=== PATIENT | male | born 1965 | race Caucasian/White ===

== ENCOUNTER 2020-01-09 17:12 | Emergency (ER) | payer OTHER ==
[~2020-01-09] VITALS: Ht 182.9 cm; Wt 108.9 kg
[~2020-01-09 17:12] MED LIST: ASPIRIN EC325 MG PO; LISINOPRIL2.5 MG PO; METFORMIN HCL500 MG PO
[2020-01-09] MEDS ORDERED: MACROBID 100 M100 MG PO (20:23)
== END 2020-01-09 20:59 | disposition home or self-care (01) ==
LOC: ED 17:12
DX: N17.9 Acute kidney failure, unspecified (principal); R31.0 Gross hematuria; E11.9 Type 2 diabetes mellitus without complications; Z88.5 Allergy status to narcotic agent
CPT/HCPCS: 51702; 51798; 80048; 81001; 85025; 99283-25; J7030

== ENCOUNTER 2020-01-13 05:31 | Emergency (ER) | payer OTHER ==
[~2020-01-13] VITALS: Ht 182.9 cm; Wt 108.9 kg
[~2020-01-13 05:31] MED LIST changes: +MACROBID 100 M100 MG PO
--- OUTSIDE RECORDS SUMMARY | 2020-01-13 05:34 | XMS ---
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 Fer has no Care Guidelines for this patient. [facility] MO[facility] NOTE: Visits indicate total known visits. ED/C VISIT TRACKING (12 MO.) 01/13/2020 05:[address] [facility] [place] TYPE: Emergency COMPLAINT: - URINE PROBLEM 01/09/2020 17:13 [facility] [place] TYPE: Emergency COMPLAINT: - BLOOD IN URINE DIAGNOSES: - Allergy status to narcotic agent - Acute kidney failure, unspecified - Gross hematuria - Hematuria, unspecified - Type 2 diabetes mellitus without complications INPATIENT VISIT TRACKING (12 MO.) No inpatient visits to display in this time frame [email or web address]
== END 2020-01-13 06:55 | disposition home or self-care (01) ==
LOC: ED 05:31
DX: T83.098A Other mechanical complication of other urinary catheter, initial encounter (principal); R31.9 Hematuria, unspecified; E11.9 Type 2 diabetes mellitus without complications; Z88.5 Allergy status to narcotic agent; Z79.899 Other long term (current) drug therapy
CPT/HCPCS: 51798; 99283-25

== ENCOUNTER 2020-01-28 12:07 | Observation (INO) | payer OTHER ==
[~2020-01-28] VITALS: Ht 182.9 cm; Wt 93.3 kg
--- NOTE | 2020-01-28 14:30 | NUR ---
PT ARRIVED FOR DIRRECT ADMIT FROM DR MENDOZA OFFICE. CBI ALREADY IN PLACE. PT IS ALERT AND ORIENTED. VITALS TAKEN. PT SENT DOWN FOR 2 VIEW CHEST XRAY. IV STARTED AND LABS DRAWN. LR STARTED. ABX GIVEN. PT DENEIS PAIN.
--- NOTE | 2020-01-28 15:00 | NUR ---
1355- SWABBED BOTH NARES FOR RAPID COVID TEST WITH NO COMPLICATIONS. SAMPLE TAKEN TO [facility]. PERFORMED BY TALIB RT
--- NOTE | 2020-01-28 16:00 | NUR ---
FOELY EMPTIED FOR 2350 MLS. 2000 IRRIGATED. U/O- 350.
--- NOTE | 2020-01-28 17:38 | NUR ---
REPORT CALLED TO EMMY WARNER @ [phone].
== END 2020-01-28 16:35 | disposition short-term general hospital (02) ==
LOC: MS 12:07
PROVIDERS: ADMIT Urology; ATTEND Urology
DX: R31.0 Gross hematuria (principal); E11.9 Type 2 diabetes mellitus without complications; I10 Essential (primary) hypertension; N28.89 Other specified disorders of kidney and ureter; Z79.84 Long term (current) use of oral hypoglycemic drugs; Z79.82 Long term (current) use of aspirin; Z79.899 Other long term (current) drug therapy
CPT/HCPCS: 71046; 80053; 85025; G0378; J0696; J7121; U0003

== ENCOUNTER 2020-02-19 14:38 | Emergency (ER) | payer OTHER ==
[~2020-02-19] VITALS: Ht 182.9 cm; Wt 93.0 kg
[2020-02-19] MEDS ORDERED: METFORMIN HCL500 MG PO (15:21)
== END 2020-02-19 23:32 | disposition short-term general hospital (02) ==
LOC: ED 14:38
DX: I82.492 Acute embolism and thrombosis of other specified deep vein of left lower extremity (principal); C64.9 Malignant neoplasm of unspecified kidney, except renal pelvis; Z90.5 Acquired absence of kidney; E11.9 Type 2 diabetes mellitus without complications; Z88.5 Allergy status to narcotic agent; Z79.84 Long term (current) use of oral hypoglycemic drugs; Z20.828 Contact with and (suspected) exposure to other viral communicable diseases
CPT/HCPCS: 36415; 80053; 82550; 85025; 85610; 85730; 93971; 96365; 96366; 96376; 99284-25; A9270; C9803; J1644; U0003

== ENCOUNTER 2021-02-17 13:32 | Emergency (ER) | payer OTHER ==
[~2021-02-17] VITALS: Ht 182.9 cm; Wt 114.7 kg
[2021-02-17] MEDS ORDERED: ELIQUIS5 MG PO (13:47)
[2021-02-17] MEDS ORDERED: AMLODIPINE BESY10 MG PO (13:47)
[2021-02-17] MEDS ORDERED: PIOGLITAZONE HC30 MG PO (13:48)
== END 2021-02-17 15:38 | disposition home or self-care (01) ==
LOC: ED 13:32
DX: R04.0 Epistaxis (principal); Z79.01 Long term (current) use of anticoagulants; E11.22 Type 2 diabetes mellitus with diabetic chronic kidney disease; N18.9 Chronic kidney disease, unspecified; Z88.5 Allergy status to narcotic agent; Z79.899 Other long term (current) drug therapy; Z79.84 Long term (current) use of oral hypoglycemic drugs
CPT/HCPCS: 99283

== ENCOUNTER 2024-03-11 13:08 | Emergency (ER) | payer MEDICARE, OTHER ==
[~2024-03-11] VITALS: Ht 182.9 cm; Wt 124.7 kg
[~2024-03-11 13:08] MED LIST changes: +AMLODIPINE BESY10 MG PO; +ELIQUIS5 MG PO; +PIOGLITAZONE HC30 MG PO
[2024-03-11] MEDS ORDERED: HYDROCORTISONE10 MG PO (13:15)
[2024-03-11] MEDS ORDERED: LEVOTHYROXINE137 MCG PO (13:15)
[2024-03-11] MEDS ORDERED: TRANEXAMIC ACID 1,000 MG/10 ML AMP TOP ONE (13:15)
[2024-03-11] MEDS ORDERED: OXYMETAZOLINE HCL 30 ML BTL NAS ONE (13:15)
[2024-03-11] MEDS ORDERED: AMLODIPINE BESYLATE 10 MG TAB PO ONE (13:30)
[2024-03-11 14:05] LABS: EOSINOPHILS 5.4 % (0-6); HEMOGLOBIN 12.5 g/dL (12.0-18.0); LYMPHOCYTES 19.4 % (24-44); MCH 33.2 (27-36); MCHC 33.8 g/dl (30-36); MCV 98.4 fl (81-99); MONOCYTES 5.6 % (0-12); NEUTROPHILS 68.6 % (39-80); PLATELET COUNT 153 K/uL (140-440); RBC 3.76 M/ul (4.3-5.7)
[2024-03-11 14:14] LABS: ALBUMIN 2.9 g/dL (3.4-5.0); ANION GAP 12.8 (7-21); BILIRUBIN, TOTAL 0.3 ng/dL (0.2-1.0); BUN/CREATININE RATIO 15.05 (6.0-28.6); CALCIUM 8.2 mg/dL (8.5-10.1); CREATININE, SERUM 1.86 mg/dL (0.70-1.30); POTASSIUM 3.8 mmol/L (3.5-5.1); PROTEIN, TOTAL 5.8 g/dL (6.4-8.2)
[2024-03-11 14:41] LABS: ABO O; ANTIBODY SCREEN NEGATIVE; RH POSITIVE
[2024-03-11 15:00] VITALS: BP 145/98
[2024-03-11] MEDS ORDERED: HEParin SOD (PORCINE) 500 UNIT/5 ML ML IV ONE (15:00)
== END 2024-03-11 15:00 | disposition home or self-care (01) ==
LOC: ED 13:08
PROVIDERS: Emergency Medicine
DX: R04.0 Epistaxis (principal); E11.22 Type 2 diabetes mellitus with diabetic chronic kidney disease; N18.9 Chronic kidney disease, unspecified; Z85.528 Personal history of other malignant neoplasm of kidney; Z88.5 Allergy status to narcotic agent; Z79.01 Long term (current) use of anticoagulants; Z79.890 Hormone replacement therapy; Z79.84 Long term (current) use of oral hypoglycemic drugs; Z79.899 Other long term (current) drug therapy
CPT/HCPCS: 30903; 36415; 80053; 85025; 86850; 86900; 86901; 99283-25

== ENCOUNTER 2025-02-11 15:16 | Inpatient (IN) | payer MEDICARE ==
[~2025-02-11] VITALS: Ht 182.9 cm; Wt 129.4 kg
[~2025-02-11 15:16] MED LIST changes: +HYDROCORTISONE10 MG PO; +LEVOTHYROXINE137 MCG PO
[2025-02-11] MEDS ORDERED: CALCIUM-MAG-ZI1 EACH PO (15:46)
[2025-02-11] MEDS ORDERED: LASIX20 MG PO (15:47)
[2025-02-11] MEDS ORDERED: JARDIANCE25 MG PO (15:47)
[2025-02-11] MEDS ORDERED: ALBUTEROL/IPRATROPIUM 3 ML NEB INH PRN (16:00)
[2025-02-11 16:05] LABS: BASOPHILS 0.5 % (0.2-1.2); EOSINOPHILS 4.6 % (0.8-7.0); LYMPHOCYTES 17.5 % (21.8-53.1); MCH 29.2 PG (25.7-32.2); MCHC 31.4 g/dL (32.3-36.5); MCV 93.0 fL (79.0-92.2); MONOCYTES 12.0 % (5.3-12.2); NEUTROPHILS 64.7 % (34.0-67.9); RBC 4.89 M/uL (4.63-6.08)
[2025-02-11 16:32] LABS: AST (SGOT) 12.0 U/L (15-37); GLOMERULAR FILTRATION RATE,EST 26.0 mL/min (>60); PROTEIN, TOTAL 7.0 g/dL (6.4-8.2); UREA NITROGEN 44.0 mg/dL (7-18)
[2025-02-11 16:43] LABS: ALT (SGPT) 18.0 U/L (14-59)
[2025-02-11] MEDS ORDERED: SODIUM CHLORIDE 0.9% 1,000 ML IV PRN ×2 (16:45→19:00)
[2025-02-11 17:17] LABS: INFLUENZA B NAA NEGATIVE (NEGATIVE); RESPIRATORY SYNCYTIAL VIR NAA NEGATIVE (NEGATIVE)
[2025-02-11] MEDS ORDERED: LIDOCAINE 2% VISCOUS 6 ML SYR TOP ONE (19:00)
[2025-02-11 20:50] VITALS: BP 139/83
--- NOTE | 2025-02-11 20:58 | NUR ---
RECEIVED REPORT FROM ER, RN. PT AMBULATED FROM STRETCHER TO MED SURG BED. WT AND VS TAKEN, ORDERED FLUIDS HUNG. NO OTHER NEEDS AT THIS TIME, CALL LIGHT WITHIN REACH, BED AT LOWEST POSITION.
--- NOTE | 2025-02-11 21:08 | NUR ---
PATIENT BROUGHT TO THE FLOOR, THIS HELPING HANDS NURSE GOT VITALS. PATIENT ON RA, AND SECOND FLUID BOLUS IS RUNNING. PATIENT HAS BELONGINGS AT BEDSIDE AND IN GREEN BAG. PATIENT HAS CANE AND BRACE FOR HIS RIGHT FOOT. PATIENT HAS PAIN IN HIS CHEST. PATIENT STATES HE IS DIABETIC BUT DOES NOT CHECK HIS SUGARS AT HIME. PATIENT HAS PORT ACCESS FOR IV.
[2025-02-11] MEDS ORDERED: LACTATED RINGER'S 1,000 ML IV SCH (21:15)
--- NOTE | 2025-02-11 21:45 | NUR ---
PTS ASSESSMENT COMPLETE. PT REQUESTING WATER, EDUCATED ON NPO D/T IMAGING. PT UNDERSTANDS, NO OTHER NEEDS AT THIS TIME, CALL LIGHT WITHIN REACH.
[2025-02-11 21:57] VITALS: BP 139/83
--- NOTE | 2025-02-11 22:40 | NUR ---
PT REPORTS HE HAS VOMITED, THFAZAL RN AND COLOR BUFFER AT BEDSIDE. 300ML DARM BROWN EMESIS EMPTIED IN TOILET, NEW EMESIS BAG GIVEN. THSI RN CALLED MD TO REPORT EMESIS, NEW TELEPHONE ORDERS RECIEVED. MD ALSO STATES FOR THIS RN TO ADD HYPOGLYCEMIC PROTOCOL AND Q6BS CHECKS ON PT. PT GIVEN PRN COMPAZINE, NO OTHER NEEDS REPORTED, CALL LIGHT WITHIN REACH.
[2025-02-11] MEDS ORDERED: DEXTROSE 50% 50 ML SYR IV PRN ×2 (22:45)
[2025-02-11] MEDS ORDERED: PROCHLORPERAZINE EDISYLATE 10 MG/2 ML VIAL IV PRN (22:45)
[2025-02-11] MEDS ORDERED: IBLOOD GLUCOSE TEST STRIP 1 EA TEST XX PRN (22:45)
[2025-02-11] MEDS ORDERED: DEXTROSE 5% 1,000 ML IV PRN (22:45)
[2025-02-11] MEDS ORDERED: GLUCAGON,HUMAN RECOMBINANT 1 MG/ML VIAL SUB-Q PRN (22:45)
[2025-02-12] VITALS (14 sets, daily range): BP systolic 113–150; BP diastolic 66–92
--- NOTE | 2025-02-12 00:23 | NUR ---
PT LAYING IN BED, EYES CLOSED, UNLABORED BREATHING. CALL LIGHT WITHIN REACH.
--- NOTE | 2025-02-12 01:45 | NUR ---
PTS VS TAKEN, BG CHECKED, TEIXEIRA EMPTIED. NO NEEDS REPORTED AT THIS TIME, CALL LIGHT WITHIN REACH.
[2025-02-12] MEDS ORDERED: IBLOOD GLUCOSE TEST STRIP 1 EA TEST VI SCH ×2 (02:00→12:00)
--- NOTE | 2025-02-12 03:55 | NUR ---
PTS IV PUMP ALARMING, NEW BAG OF FLUIDS RUNNING. NO OTHER NEEDS AT THIS TIME, CALL LIGHT WITHIN REACH.
--- NOTE | 2025-02-12 05:29 | NUR ---
VITALS TAKEN, LLUVIA MONTALVO, I&OS CHARTED, PT REPORTS NO NEEDS AT THIS TIME, CALL LIGHT WITHIN REACH.
--- NOTE | 2025-02-12 07:08 | NUR ---
Pt report received from TIMMY Zhao. Pt is resting supine in bed, A&O, denies pain at this time. Assessment done at this time. Call light in reach. White board updated.
[2025-02-12 08:01] LABS: BASOPHILS 0.5 % (0.2-1.2); EOSINOPHILS 3.6 % (0.8-7.0); LYMPHOCYTES 16.1 % (21.8-53.1); MCH 29.4 PG (25.7-32.2); MCHC 30.9 g/dL (32.3-36.5); MCV 95.2 fL (79.0-92.2); MONOCYTES 13.0 % (5.3-12.2); NEUTROPHILS 66.3 % (34.0-67.9); RBC 4.39 M/uL (4.63-6.08)
[2025-02-12 08:25] LABS: ALT (SGPT) 16.0 U/L (14-59); AST (SGOT) 13.0 U/L (15-37); GLOMERULAR FILTRATION RATE,EST 31.0 mL/min (>60); PHOSPHORUS, INORGANIC 4.1 mg/dL (2.5-4.9); PROTEIN, TOTAL 6.0 g/dL (6.4-8.2); UREA NITROGEN 37.0 mg/dL (7-18)
--- NOTE | 2025-02-12 10:21 | NUR ---
ALERT AND ORIENTED IN BED. PATIENT LIVES IN APARTMENT WITH "A FEW STEPS TO GET INSIDE." STATES THERE IS A HANDRAIL THAT HE USES. HE HAS A CANE. DOES NOT DRIVE, BROTHER DROVE HIM TO THE HOSPITAL YESTERDAY. HAS NO FINANCIAL CONCERNS. STATES HE IS ABLE TO PAY FOR UTILITIES, FOOD AND MEDICATIONS WITHOUT DIFFICULTY. PLANS TO RETURN HOME WHEN MEDICALLY READY. NO CM NEEDS AT THIS TIME.
[2025-02-12] MEDS ORDERED: ACETAMINOPHEN 325 MG TAB PO PRN (11:15)
[2025-02-12] MEDS ORDERED: IBLOOD GLUCOSE TEST STRIP 1 EA TEST XX PRN (11:15)
[2025-02-12] MEDS ORDERED: DEXTROSE 50% 50 ML SYR IV PRN ×2 (11:15)
[2025-02-12] MEDS ORDERED: DEXTROSE 5% 1,000 ML IV PRN (11:15)
[2025-02-12] MEDS ORDERED: PROCHLORPERAZINE EDISYLATE 10 MG/2 ML VIAL IV PRN (11:15)
[2025-02-12] MEDS ORDERED: LACTATED RINGER'S 1,000 ML IV SCH (11:15)
[2025-02-12] MEDS ORDERED: GLUCAGON,HUMAN RECOMBINANT 1 MG/ML VIAL SUB-Q PRN (11:15)
[2025-02-12] MEDS ORDERED: PANTOPRAZOLE SODIUM 40 MG/10 ML VIAL IV SCH (11:20)
--- NOTE | 2025-02-12 11:30 | NUR ---
CHG wipe down completed at this time by RENA Andrade. Alston emptied of 150ml clear yellow urine, pre-op
[2025-02-12] MEDS ORDERED: LIDOCAINE HCL 2% 5 ML SDV ONE (11:44)
--- NOTE | 2025-02-12 11:56 | NUR ---
Pt transferred to Day surgery by two OR RNs. LR on straight tubing hung and connected to pt. Pt cell phone locked in lock box in pt room at pt's request.
[2025-02-12] MEDS ORDERED: INSULIN LISPRO 100 UNIT/ML ML SUB-Q SCH (12:00)
[2025-02-12] MEDS ORDERED: PHARMACY RENAL DOSE ADJUSTMENT 1 DOSE MISC PO SCH (12:00)
--- NOTE | 2025-02-12 12:28 | NUR ---
02/12/25 1228 Grace Andre 1223: PT ARRIVES TO PACU DROWSY/AWAKE AND REACTIVE. PT CONNECTED TO MONITORS. REPORT RECEIVED FROM ADOLESCENT PSYCHIATRIST AND NETWORK PLANNER. CHASE 1225: PT DENIES HAVING ANY PAIN OR NAUSEA.
--- NOTE | 2025-02-12 12:32 | NUR ---
DAILY CHG WIPEDOWN COMPLETE. BED LINENS AND GOWN CHANGED, ROOM TIDIED BY THIS STAMPING MILL TENDER.
--- NOTE | 2025-02-12 12:49 | NUR ---
Pt arrived back to room, transferred via jake Mcnulty from PACU. Pt is A&O. Denies pain at this time. Received pt report from TIMMY Mcnulty. IVF running at ordered rate per emar. SCDs connected. Pt's phone retrieved from lock box and given to pt. Side rails up x4, jean catheter draining clear yellow urine. VSS, CPOX on.Call light in reach.
--- NOTE | 2025-02-12 14:50 | NUR ---
Pt is A&O, brother is in visiting with him. Pt VSS. Denies pain at this time, has been sipping room temp water. It has been 2 hours post procedure. Pt provided with iced water. Call light in reach.
[2025-02-12] MEDS ORDERED: SUCRALFATE 1 GM TAB PO SCH (16:00)
--- NOTE | 2025-02-12 16:04 | NUR ---
HOURLY ROUNDING POST OPP VITALS FOR PATIENT. NO REQUEST AT THIS TIME CALL LIGHT HAS BEEN PLACED WITHIN REACH
--- NOTE | 2025-02-12 16:25 | NUR ---
In with pt for med administration. Pt is resting supine in bed, playing on his phone. Carafate pill cut in half using pill cutter as pt states he would probably have difficulty swallowing that large of a pill whole. Pt was able to swallow each half without issue. Pt provided with a diet gingerale and he has been tolerating clear liquids well. Call light in reach. Pt denies needs at this time.
--- NOTE | 2025-02-12 16:35 | NUR ---
HOURLY ROUDNING PATIENT BLOOD SUGARREADS 76 ORANGE JUICE WAS GIVEN AND NURSE HAS BEEN NOTIFIED OF LOW BLOOD SUGAR
--- NOTE | 2025-02-12 17:23 | NUR ---
PATIENT SITTING UP IN BED, NO REQUEST AT THIS TIME. FINISHED MAJORITY OF HIS MEAL. CALL LIGHT HAS BEEN PLACED WITHIN REACH
--- NOTE | 2025-02-12 17:47 | NUR ---
RN ASKED FOR PHARMACEUTICAL SALES SPECIALIST TO RE-TEST BLOODSUGAR, PHARMACEUTICAL SALES SPECIALIST CHARTED BLOODSUGAR, AND WALLET ASSEMBLER ASHLEY NOTIFIED. CALL LIGHT WITH IN REACH AND NOTHING ELSE NEEDED AT THIS TIME.
--- NOTE | 2025-02-12 19:46 | NUR ---
REPORT RECEIVED FROM TIMMY DOOLEY. PATIENT RESTING IN BED COMFORTABLY, WATCHING TV. RESPIRATIONS EVEN AND UNLABORED. HE DENIES ANY NEEDS, CALL LIGHT IN REACH
--- NOTE | 2025-02-12 20:19 | NUR ---
VS OBTAINED AND RECORDED. PATIENT STATES HE IS COMFORTABLE WITH NO NEEDS. SCHEDULED MEDICATIONS ADMINISTERED PER ORDER. ASSESSMENT COMPLETED. NO FURTHER NEEDS, CALL LIGHT IN REACH.
[2025-02-12] MEDS ORDERED: MELATONIN 3 MG TAB PO PRN (21:00)
--- NOTE | 2025-02-12 21:44 | NUR ---
PATIENT RESTING IN BED, WATCHING TV. NEW IVF BAG HUNG PER ORDER. NO NEEDS, CALL LIGHT IN REACH
--- NOTE | 2025-02-12 23:09 | NUR ---
ROUNDED ON PATIENT, RESTING WITH EYES CLOSED, RESPIRATIONS EVEN AND UNLABORED. CPOX AT BEDSIDE, NO NEEDS, CALL LIGHT IN REACH
[2025-02-13] VITALS (8 sets, daily range): BP systolic 109–157; BP diastolic 58–78
--- NOTE | 2025-02-13 00:46 | NUR ---
ROUNDED ON PATIENT, PATIENT RESTING ON RIGHT SIDE WITH EYES CLOSED, RESPIRATIONS EVEN AND UNLABORED. NO NEEDS, CALL LIGHT IN REACH
--- NOTE | 2025-02-13 02:04 | NUR ---
ROUNDED ON PATIENT, HE IS RESTING WITH EYES CLOSED, CPOX AT BEDSIDE. RESPIRATIONS EVEN AND UNLABORED. IVF CONTINUING TO INFUSE PER ORDER. NO NEEDS, CALL LIGHT IN REACH
--- NOTE | 2025-02-13 03:09 | NUR ---
ROUNDED ON PATIENT, PATIENT RESTING ON BACK, RESPIRATIONS EVEN AND UNLABORED. CPOX AT BEDSIDE, IVF INFUSING WITHOUT DIFFICULTY, CALL LIGHT IN REACH
[2025-02-13 05:35] LABS: BASOPHILS 0.7 % (0.2-1.2); EOSINOPHILS 3.9 % (0.8-7.0); LYMPHOCYTES 17.1 % (21.8-53.1); MCH 29.8 PG (25.7-32.2); MCHC 31.7 g/dL (32.3-36.5); MCV 93.8 fL (79.0-92.2); MONOCYTES 12.8 % (5.3-12.2); NEUTROPHILS 64.8 % (34.0-67.9); RBC 4.00 M/uL (4.63-6.08)
--- NOTE | 2025-02-13 05:47 | NUR ---
VS OBTAINED AND RECORDED, INTAKE AND OUTPUT DOCUMENTED. LABS PULLED VIA PORT ACCESS, 5ML WASTED, FLUSHED WITH NORMAL SALINE. HUB CAPS CHANGED. IVF RECONNECTED, INFUSING WITHOUT DIFFICULTY. PATIENT DENIES ANY NEEDS, CALL LIGHT IN REACH
[2025-02-13 06:03] LABS: ALT (SGPT) 13.0 U/L (14-59); AST (SGOT) 9.0 U/L (15-37); GLOMERULAR FILTRATION RATE,EST 34.0 mL/min (>60); PROTEIN, TOTAL 5.4 g/dL (6.4-8.2); UREA NITROGEN 27.0 mg/dL (7-18)
--- NOTE | 2025-02-13 06:46 | NUR ---
PATIENT GIVEN SCHEDULED MEDICATION PER ORDER. NO OTHER NEEDS, CALL LIGHT IN REACH
[2025-02-13] MEDS ORDERED: LEVOTHYROXINE SODIUM 137 MCG TAB PO SCH (07:00)
--- NOTE | 2025-02-13 07:10 | NUR ---
RECIEVED REPORT FROM NANO WARNER. PT IS RESTING IN BED WITH EYES OPEN. RR EVEN AND UNLABORED. CPOX IS AT BEDSIDE.
--- NOTE | 2025-02-13 07:47 | NUR ---
PATIENT IS LAYING IN BED. BLOOD GLUCOSE WAS 79. PATIENT WAS PROVIDED WITH A WARM WASHCLOTH. PATIENT REFUSED TO BRUSH TEETH AND GET INTO CHAIR OR BREAKFAST. PATIENTS CALL LIGHT IS WITHIN REACH AND NO FURTHER NEEDS AT THIS TIME.
[2025-02-13] MEDS ORDERED: AMLODIPINE BESYLATE 10 MG TAB PO SCH (09:00)
[2025-02-13] MEDS ORDERED: MAGNESIUM SULFATE 2 GM/50 ML BAG IV ONE (09:00)
--- NOTE | 2025-02-13 09:03 | NUR ---
UR CLINICAL REVIEW: 2 [place] GREGORIO, MEETS INPT FOR ACUTE RENAL FAILURE, DEHYDRATION AND DYSPHAGIA CREATININE 2.78 TO 2.21, IV FLUIDS, TRENDING LABS MEDICARE INPT 02/13/2025 @ 0902 ORDER MATCHES REG NO AUTH REQUIRED PER MEDICARE RULES PLAN TO DC TO HOME TOMORROW IF MEDICALLY READY. DC REVIEW 02/15/2025
[2025-02-13] MEDS ORDERED: ELIQUIS2.5 MG PO (09:22)
--- NOTE | 2025-02-13 10:20 | NUR ---
Spoke with Rajesh. He is resting in bed. Denies needs. Waiting for his brother to come in as he believes Dr. Dhillon wanted to speak with him. Pt has poor dentician, he declines to have Eligibility to check if he qualifies for the [facility]. He does not want to deal with this at this time. Pt plans on dc to home when he medically stable to dc to home.
--- NOTE | 2025-02-13 10:24 | NUR ---
MED REC COMPLETE
--- NOTE | 2025-02-13 10:33 | NUR ---
PT RESTING IN CHAIR ON PHONE. CPOX AT BEDSIDE. CALL LIGHT WITHIN REACH.
--- NOTE | 2025-02-13 11:11 | NUR ---
PATIENT IS SITTING IN CHAIR. PATIENT WAS ASSISTED TO THE BATHROOM. PATIENT HAD CATHETER CARE AND CHG WIPE DOWN. PATIENTS CALL LIGHT IS WITHIN REACH AND NO FURTHER NEEDS AT THIS TIME.
--- NOTE | 2025-02-13 11:49 | NUR ---
PT'S TEIXEIRA D/C'D PER MD ORDER. PT TOLERATED WELL. PT EDUCATED ON NEEDING TO VOID BEFORE D/C. PT VERBALIZED UNDERSTANDING ON CALLING BEFORE GETTING UP. CALL LIGHT WITHIN REACH, NO NEEDS AT THIS TIME.
--- NOTE | 2025-02-13 13:03 | NUR ---
PT IS RESTING IN CHAIR WITH EYES OPEN, ON PHONE. CALL LIGHT IS WITHIN REACH.
--- NOTE | 2025-02-13 13:24 | NUR ---
PATIENT IS SITTING IN CHAIR. PATIENT WAS ASSISTED SBA TO THE BATHROOM. VITAL SIGNS AND I&OS WERE DONE. CALL LIGHT IS WITHIN REACH AND NO FURTHER NEEDS AT THIS TIME.
--- NOTE | 2025-02-13 13:55 | EKG ---
[facility] [address] [facility] [place], [place] [address] Signed Normal sinus rhythm T wave abnormality, consider anterior ischemia Prolonged QT Abnormal ECG No previous ECGs available Confirmed by Soheila Mccloud DO ([id number]) on 02/13/2025 1:55:21 PM Electronically Signed By: SOHEILA MCCLOUD DO 02/13/25 1355 PATIENT NAME: CARLOS MARTINEZ Electrocardiogram DATE OF : 67 PHYSICIAN: SOHEILA MCCLOUD DO REPORT #: [id number] REPORT IS CONFIDENTIAL AND NOT TO BE RELEASED WITHOUT AUTHORIZATION
--- NOTE | 2025-02-13 14:07 | NUR ---
PT RESTING IN CHAIR WITH EYES CLOSED. RR EVEN AND UNLABORED. CALL LIGHT IS WITHIN REACH.
--- NOTE | 2025-02-13 15:31 | NUR ---
PT IN CHAIR VISITING WITH BROTHER. IV SITE ASSESSED. DRESSING C/D/I. IV FLUIDS INFUSING PER THE EMAR. CALL LIGHT IS WITHIN REACH, NO NEEDS AT THIS TIME.
--- NOTE | 2025-02-13 16:37 | NUR ---
PATIENT IS SITTING IN THE CHAIR WITH BILATERAL LOWER EXTREMITIES ELEVATED. PATIENT WITH EYES OPEN AND RESPIRATIONS ARE EVEN AND UNLABORED. PATENT WITH CPOX AT BEDSIDE. PATIENT BROTHER REMAINS IN THE ROOM. PATIENT AND FAMILY MEMBER EDUCATED ON STAYING OVER NIGHT WITH POSSIBLE DISCHARGE IN THE MORNING. PATIENT AND FAMILY EXPRESSED UNDERSTANDING. PATIENT STATED NO FURTHER NEEDS AT THIS TIME. CALL LIGHT AND PERSONAL BELONGINGS ARE WITHIN REACH.
--- NOTE | 2025-02-13 17:00 | NUR ---
PT SITTING IN CHAIR, ON PHONE. PERSONAL BELONGINGS AND PHONE ARE WITHIN REACH. PT DENIES ANY NEEDS AT THIS TIME.
--- NOTE | 2025-02-13 18:08 | NUR ---
PATIENT IS LAYING IN BED. VITAL SIGNS AND I&OS WERE DONE. PATIENTS CALL LIGHT IS WITHIN REACH AND NO FURTHER NEEDS AT THIS TIME.
--- NOTE | 2025-02-13 19:33 | NUR ---
REPORT RECEIVED FROM TIMMY BROWNING AND TIMMY FRENCH. PATIENT REQUESTED TO GET UP TO RESTROOM, PATIENT AMBULATED WITH X1 ASSIST AND STABILIZATION WITH THE IV POLE.
--- NOTE | 2025-02-13 19:35 | NUR ---
call light answered, pt back from bathroom sba and resting back in bed. cpox resumed and call light and personal belongings in reach. warm blanket provided, pt denies additional needs or concerns.
--- NOTE | 2025-02-13 21:03 | NUR ---
VS OBTAINED AND RECORDED. INTAKE AND OUTPUT DOCUMENTED. ASSESSMENT COMPLETE. SCHEDULED MEDICATIONS GIVEN PER ORDER, IVF CONTINUOUSLY INFUSING PER ORDER AND WITHOUT DIFFICULTY. PRN MEDICATION FOR SLEEP ADMINISTERED PER REQUEST. PATIENT DENIES OTHER NEEDS, CALL LIGHT IN REACH
--- NOTE | 2025-02-13 23:13 | NUR ---
CALL LIGHT ANSWERED, PATIENT UP TO RESTROOM, BACK TO BED WITHOUT DIFFICULTY. SBA. NEW SOCKS AND GOWN GIVEN TO PATIENT. IVF CONTINUING TO INFUSE PER ORDER. NO FURTHER NEEDS, CALL LIGHT IN REACH
--- NOTE | 2025-02-14 00:16 | NUR ---
ROUNDED ON PATIENT, PATIENT RESTING WITH EYES CLOSED, RESPIRATIONS EVEN AND UNLABORED. NO NEEDS IDENTIFIED, CALL LIGHT IN REACH
--- NOTE | 2025-02-14 01:05 | NUR ---
ROUNDED ON PATIENT, PATIENT RESTING WITH EYES CLOSED, RESPIRATIONS EVEN AND UNLABORED. CPOX AT BEDSIDE. CALL LIGHT IN REACH
--- NOTE | 2025-02-14 02:07 | NUR ---
ROUNDED ON PATIENT, RESPIRATIONS EVEN AND UNLABORED. NO NEEDS, CALL LIGHT IN REACH
--- NOTE | 2025-02-14 03:06 | NUR ---
new bag iv fluids hung and infusing as directed, port dressing wnl. no additional needs or concerns. call light in reach.
--- NOTE | 2025-02-14 03:59 | NUR ---
ROUNDED ON PATIENT, RESTING WITH EYES CLOSED, RESPIRATIONS EVEN AND UNLABORED. NO NEEDS, CALL LIGHT IN REACH
[2025-02-14 05:27] VITALS: BP 148/63
[2025-02-14 05:27] LABS: BASOPHILS 1.0 % (0.2-1.2); EOSINOPHILS 5.8 % (0.8-7.0); LYMPHOCYTES 20.2 % (21.8-53.1); MCH 29.2 PG (25.7-32.2); MCHC 31.4 g/dL (32.3-36.5); MCV 92.9 fL (79.0-92.2); MONOCYTES 14.4 % (5.3-12.2); NEUTROPHILS 57.6 % (34.0-67.9); RBC 4.08 M/uL (4.63-6.08)
[2025-02-14 05:28] VITALS: BP 148/63
--- NOTE | 2025-02-14 05:33 | NUR ---
LABS PULLED VIA PORT-A-CATH. FLUSHED 10ML NORMAL SALINE. NEW HUB CAPS ON LINE. IVF RESTARTED, INFUSING WITHOUT DIFFICULTY. PATIENT UP TO RESTROOM, SBA. BACK TO BED WITHOUT DIFFICULTY, VS OBTAINED AND RECORDED, INTAKE AND OUTPUT DOCUMENTED. HE DENIES OTHER NEEDS, CALL LIGHT IN REACH
[2025-02-14 05:51] LABS: ALT (SGPT) 10.0 U/L (14-59); AST (SGOT) 9.0 U/L (15-37); GLOMERULAR FILTRATION RATE,EST 40.0 mL/min (>60); PROTEIN, TOTAL 5.3 g/dL (6.4-8.2); UREA NITROGEN 20.0 mg/dL (7-18)
--- NOTE | 2025-02-14 07:24 | NUR ---
REPORT RECEIVED FROM TIMMY MCGILL. PT LAYING IN BED, LIGHTLY ASLEEP. RESPIRATIONS EVEN AND UNLABORED. IV FLUID INFUSING WELL. NO NEEDS EXPRESSED AT THIS TIME. CALL LIGHT IN REACH.
--- NOTE | 2025-02-14 08:28 | NUR ---
PATIENT IN BED AT THIS TIME. WORKDAY SENIOR ASSOCIATE CHARTED HOURLY ROUNDS AND ASSISTED PATIENT TO CHAIR. CALL LIGHT WITHIN REACH, NO FURTHER NEEDS.
--- NOTE | 2025-02-14 08:50 | NUR ---
PT SITTING ON THE CHAIR JUST FINISHED BREAKFAST. DUE MEDICATIONS GIVEN. RESPIRATIONS EVEN AND UNLABORED. CALL LIGHT IN REACH.
--- NOTE | 2025-02-14 08:50 | NUR ---
ALERT AND ORIENTED IN RECLINER. DENIES CM NEEDS. STATES HE WILL NEED A CARERIDE HOME WHEN DISCHARGED TODAY. NO OTHER CM NEEDS AT THIS TIME.
[2025-02-14 08:52] VITALS: BP 135/66
[2025-02-14 08:56] VITALS: BP 135/66
--- NOTE | 2025-02-14 09:16 | NUR ---
PT SITTING ON THE CHAIR, VITAL SIGNS TAKEN AND RECORDED. INTAKE AND OUTPUT RECORDED. ROUNDED BY DR. MCCLOUD. FULL ASSESSMENT DONE. DENIES FURTHER NEEDS. CALL LIGHT IN REACH.
--- NOTE | 2025-02-14 09:20 | NUR ---
PT IN THE CHAIR, VITAL SIGNS TAKEN AND RECORDED. INTAKE AND OUTPUT RECORDED. IV FLUID INFUSING WELL. DR MCCLOUD CHECKED WITH PT. ASSESSMENT DONE. DENIES NEEDS AT THIS TIME. CALL LIGHT IN REACH.
[2025-02-14] MEDS ORDERED: SUCRALFATE1 GM/10 ML PO (10:22)
[2025-02-14] MEDS ORDERED: PANTOPRAZOLE SO40 MG PO (10:24)
[2025-02-14 10:45] VITALS: BP 132/75
[2025-02-14] MEDS ORDERED: HEParin SOD (PORCINE) 5,000 UNIT/ML SDV SUB-Q ONE (11:00)
[2025-02-14] MEDS ORDERED: HEParin SOD (PORCINE) 500 UNIT/5 ML ML IV ONE (11:15)
== END 2025-02-14 11:50 | disposition home or self-care (01) | DRG 381 ==
LOC: ED 15:16 → MS 15:17
PROVIDERS: Emergency Medicine; Surgery; ADMIT Student in an Organized Health Care Education/Training Program; ATTEND Student in an Organized Health Care Education/Training Program
PROC: 0DB78ZX Excision of Stomach, Pylorus, Via Natural or Artificial Opening Endoscopic, Diagnostic (ICD-10-PCS; principal; 2025-02-12 11:51)
DX: K22.10 Ulcer of esophagus without bleeding (principal); N17.9 Acute kidney failure, unspecified; I48.91 Unspecified atrial fibrillation; E03.9 Hypothyroidism, unspecified; I12.9 Hypertensive chronic kidney disease with stage 1 through stage 4 chronic kidney disease, or unspecified chronic kidney disease; E11.22 Type 2 diabetes mellitus with diabetic chronic kidney disease; N18.9 Chronic kidney disease, unspecified; K21.9 Gastro-esophageal reflux disease without esophagitis; E86.0 Dehydration; Z90.5 Acquired absence of kidney; Z79.01 Long term (current) use of anticoagulants; Z79.84 Long term (current) use of oral hypoglycemic drugs; Z79.890 Hormone replacement therapy; Z79.899 Other long term (current) drug therapy; Z88.5 Allergy status to narcotic agent
CPT/HCPCS: 00731; 36415; 71045; 71250; 74176; 80053; 83735; 84100; 84484; 85025; 87502; 93005; 93010; A4311; J0780; J1815; J2003; J2405; J2470; J2704; J3475; J7030; J7121; U0002